=== PATIENT | female | born 1980 | race Caucasian/White ===

== ENCOUNTER 2020-06-09 21:15 | Emergency (ER) | payer MEDICAID ==
[~2020-06-09] VITALS: Ht 165.1 cm; Wt 100.0 kg
[2020-06-09] MEDS ORDERED: SODIUM CHLORIDE 0.9% 1,000 ML IV ONE (22:15)
[2020-06-09 23:29] LABS: BASOPHILS % 0.3 % (0.0-2.0); EOSINOPHILS % 0.4 % (0.0-5.0); HEMATOCRIT. 30.6 % (36.0-48.0); HEMOGLOBIN. 10.8 g/dL (12.0-16.0); LYMPHOCYTES % 21.9 % (20.0-50.0); MEAN CORPUSCULAR HEMOGLOBIN 30.2 pg (28.0-32.0); MEAN CORPUSCULAR VOLUME 85.7 fL (81.0-99.0); MEAN PLATELET VOLUME 8.8 fl (7.4-10.4); MONOCYTES % 4.7 % (2.0-8.0); NEUTROPHILS % 72.7 % (40.0-76.0); PLATELET 254 x1000/uL (130-400); RED BLOOD CELL COUNT 3.57 mill/uL (4.2-5.4); RED CELL DISTRIBUTION WIDTH 14.6 % (11.6-14.6)
[2020-06-09 23:34] LABS: CHLORIDE 109 mEq/L (98-107)
[2020-06-09 23:35] LABS: PROTHROMBIN TIME 10.3 sec (9.6-11.0)
[2020-06-10] LABS: B-HCG QUANTITATIVE 1011 mIU/mL (<3)
[2020-06-10] MEDS ORDERED: RHO(D) IMMUNE GLOBULIN 300 MCG/SYR IM ONE (01:45)
[2020-06-10 02:21] VITALS: BP 105/84
== END 2020-06-10 02:23 | disposition home or self-care (01) ==
LOC: ER 21:15
DX: O03.6 Delayed or excessive hemorrhage following complete or unspecified spontaneous abortion (principal); I49.9 Cardiac arrhythmia, unspecified
CPT/HCPCS: 36415; 76801; 76817; 80053; 84702; 85025; 85610; 86850; 86870; 86900; 86901; 90384; 93005; 96360; 99285; J7030